=== PATIENT | female | born 1990 | race Caucasian/White ===

== ENCOUNTER 2018-09-21 05:47 | Inpatient (IN) | payer BC ==
[2018-09-21] MEDS ORDERED: Sodium Chloride 0.9% 10 ML Syringe FLUSH PRN ×3 (06:10→14:07)
[2018-09-21] MEDS ORDERED: Penicillin G Potassium 5,000,000 Unit Vial ONE (06:34)
[2018-09-21] MEDS: Lactated Ringers 1,000 ML IV SCH ×3 (06:40→08:50)
[2018-09-21] MEDS ORDERED: Betamethasone Acetate/Betamethasone Sod Phosphate 30 MG/5 ML MDV IM ONE (06:45)
[2018-09-21] MEDS ORDERED: Misoprostol 400 MCG (4 X 100 MCG TAB) RECTAL PRN ×2 (06:46→14:07)
[2018-09-21] MEDS ORDERED: Carboprost Tromethamine 250 MCG/1 ML Amp IM PRN ×2 (06:46→14:07)
[2018-09-21] MEDS ORDERED: Methylergonovine 0.2 MG/1 ML Amp IM PRN (06:46)
[2018-09-21] MEDS ORDERED: Betamethasone Acetate/Betamethasone Sod Phosphate 30 MG/5 ML MDV ONE (06:46)
[2018-09-21] MEDS ORDERED: Tranexamic Acid 1,000 MG in Sodium Chloride 0.9% 100 ML IV PRN ×2 (06:46→14:07)
[2018-09-21] MEDS ORDERED: Acetaminophen 325 MG Tab PO PRN ×2 (06:46→14:07)
[2018-09-21] MEDS ORDERED: Lidocaine 1% 30 ML SDV INJECT PRN (06:46)
[2018-09-21] MEDS ORDERED: Ondansetron 4 MG/2 ML SDV IV PRN (06:46)
[2018-09-21] MEDS ORDERED: Lactated Ringers 500 ML IV ONE (06:46)
[2018-09-21] MEDS ORDERED: Oxytocin/Normal Saline 30 UNIT/500 ML BAG IV SCH (07:00)
[2018-09-21] MEDS ORDERED: Penicillin G Potassium 5 MILLUNITS in Sodium Chloride 0.9% 100 ML IV ONE (07:00)
[2018-09-21] MEDS ORDERED: fentaNYL 100 MCG/2 ML SDV ONE (08:04)
[2018-09-21] MEDS ORDERED: EPINEPHrine 1 MG/ML SDV ONE (08:04)
[2018-09-21] MEDS ORDERED: Sodium Bicarbonate 4.2% 2.5 MEQ/5 ML SDV ONE (08:05)
--- NOTE | 2018-09-21 08:35 | PCM.SN ---
- Free Text/Narrative Note: Intrathecal. Sitting position, sterile prep and drape. 1% lidocaine w bicarb for skinwheal to L2 L3 interspace. Introducer, 24 ga pencan x 1. Pos CSF, neg heme, neg parasthesia. 0.1 ml 1:1000 epi, 20 mcg pf sufenta, 30 mcg pf fentanyl , 0.4 ml pf ns and 6 mg of 0.75% pf bupivacaine injected after CSF aspiration. Pt to L lateral position. Procedure time 0815 to 0827
[2018-09-21] MEDS: Penicillin G Potassium 3 MILLUNITS in Sodium Chloride 0.9% 100 ML IV SCH ×2 (10:14→19:21)
--- NOTE | 2018-09-21 12:31 | PN ---
DATE: 09/21/2018 SUBJECTIVE: The patient is requesting intrathecal, now status post intrathecal and feeling comfortable. OBJECTIVE: heart tones 130s and reassuring tocometer contractions spaced out to every 5-10 minutes on average. Vaginal exam reveals to be 5 cm, 100% effaced, +1 to +2 station, vertex suspected, still leaking clear fluid. ASSESSMENT/PLANS: Intrauterine at 35 and 1/7 weeks by 8 and 2/7 weeks ultrasound with spontaneous rupture membranes with labor and advancing cervical dilation, not felt to be a transfer candidate, that now has had her intrathecal, feels comfortable, and contractions have decreased. Therefore, we will start Pitocin augmentation, start at 2 milliunits, up by 2 milliunits every 30 minutes and followup clinically and closely. Plans were discussed with the patient. Will be doing this, because of the spontaneous rupture membranes approximately 24 hours prior and we will follow maternal status closely as well. [facility] /[id number]
--- NOTE | 2018-09-21 12:34 | PN ---
DATE: 09/21/2018 SUBJECTIVE: The patient is comfortable, status post intrathecal. OBJECTIVE: heart tones 120s to 130s. Vaginal exam thought to be complete earlier, did evaluate her at 6 cm with 100% effaced, +1 to +2 station, vertex suspected with clear fluid continued to leak from the vaginal region. Tocometer reveals contractions every 2 minutes on average. Pitocin continues. ASSESSMENT: Intrauterine 35 and 1/7th weeks by 8 and 2/7th week ultrasound with spontaneous rupture of membranes, active labor, advancing cervical dilation, not a transfer candidate, GBS unknown, G1, P0. PLAN: At this time, we will continue to followup clinically and closely. Follow status closely. Plans were discussed with patient. [facility] /[id number]
--- NOTE | 2018-09-21 12:53 | HP ---
CHIEF COMPLAINT: Leakage of fluid and increasing contractions at 35w1d gestation. HISTORY OF PRESENT ILLNESS: The patient is a 27-year-old, G1, P0 female, who presented at 35 weeks 1 day's gestation with leakage of fluid and contractions increasing in intensity and frequency. The patient states that since 09/20/2018, the patient began noticing a slight leakage of fluids throughout the day. Then, at 3 a.m. on 09/21/2018, the patient awoke due to a large amount of fluid leakage and onset of abdominal cramping. The patient then presented to Labor and Delivery and was noted to be timoteo about every 2 to 4 minutes. The patient was checked and noted to be in active labor. The patient endorses positive movement. The patient denies associated symptoms of headache, fever, chills, blurred vision, chest pain, shortness of breath, or lower extremity edema. Patient has had SROM for over 24 hours. Upon admission a speculum exam was done with visualization of head, Nitrazine positive fluid, and 4cm dilation 80% effaced [employer]BL[employer] in [place], [place] was consulted and it was decided that patient was not fit for transfer and preparation for delivery here. [place] [facility]ICU team was contacted and it was decided that they will arrive after delivery due to infant prematurity. PAST MEDICAL HISTORY: The patient has a history of musculoskeletal conditions. CURRENT MEDICATIONS: vitamin. ALLERGIES: Intolerance to hydrocodone. FAMILY HISTORY: The patient states that diabetes runs on paternal side of the family. The patient's father also an essential tremor, for which he takes a beta-sony. SOCIAL HISTORY: The patient resides in [place] with significant other, Jerson, and stepdaughter, Edie. 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 They have 1 cat in the home and they do not smoke. Significant other, Rudy, has a significant history for a maternal grandfather with diabetes and Rudy himself has exercise-induced asthma. REVIEW OF SYSTEMS: Pertinent review of systems noted in HPI. OBJECTIVE: Vital Signs: Temp 97.9, HR 102 bpm, BP 132/87, RR 16 breaths per minute. General: Awake, alert, in mild distress due to contractions. HEENT: Grossly normal. Cardiovascular: Regular rate and rhythm. No murmurs noted. Pulmonary: Lungs are clear to auscultation bilaterally. Abdomen: Soft, nontender. Normoactive bowel sounds. Gravid uterus palpated 15 cm above the umbilicus. Cervical: Upon spec exam, the patient was noted be 5 cm dilated with presentation of fetus in vertex presentation. Clear fluid noted. Extremities: No edema, erythema, or tenderness to palpation bilaterally. Neurologic: Grossly normal. ASSESSMENT: The patient is 27-year-old, G1, P0, presenting at 35 weeks 1 day's gestation with leakage of fluid and contractions, noted to be in active labor. 1. IUP 35 1/7 gestation by 8 2/7 weeks U/S 2. SROM over 24 hours 3. Presentation in active labor 4. NOT a transfer candidate 5. GBS unknown 6. PLAN: 1. The patient was given 1 dose of penicillin due to unknown GBS status. 2. The patient was noted to be in breech presentation at 21 weeks with an anterior placenta. Patient is now vertex. 3. Continuation of expected labor and delivery. The patient was seen and evaluated today by myself and Dr. Caleb Chacko. Assessment plan is under advisement of Dr. Chacko. seen and agreed-NICK -Madhuri Fowler MS-III [facility] /[id number] MTDD
[2018-09-21] MEDS ORDERED: Benzocaine/Menthol 20%-0.5% Spray 56 GM Canister TOP PRN (14:00)
[2018-09-21] MEDS ORDERED: Simethicone 80 MG Tab.Chew PO PRN (14:00)
[2018-09-21] MEDS ORDERED: Oxytocin 10 Units/1 ML SDV IM PRN (14:07)
[2018-09-21] MEDS ORDERED: Docusate Sodium 100 MG Cap PO PRN (14:07)
[2018-09-21] MEDS: Ibuprofen 800 MG Tab PO PRN (17:27)
[2018-09-21] MEDS ORDERED: Zolpidem 5 MG Tab PO PRN (21:00)
[2018-09-22] MEDS: Ibuprofen 800 MG Tab PO PRN ×2 (02:36→10:55)
[2018-09-22] MEDS ORDERED: Prenatal Multivitamin with Calcium/Folic Acid/Iron Tab PO SCH (09:00)
--- NOTE | 2018-09-22 09:02 | PN ---
DATE: 09/22/2018 SUBJECTIVE: The patient is status post day #1 from spontaneous vaginal delivery of male infant at 35 weeks 1 day gestation. The patient was noted to have spontaneous rupture of membranes for over 30 hours and to be in active labor when presented to Labor and Delivery at that time. The patient reports feeling well overnight. She endorses normal amount of bleeding and cramping. She has been ambulating well, tolerating general diet, urinating, and passing flatus appropriately. She just reports being sore throughout. She denies symptoms of dizziness, lightheadedness, headaches, difficulty breathing, or chest pain. The patient is eager to be discharged for travel to [place] to be with , who has been admitted to the NICU in [place], [place] due to prematurity and concern of possible sepsis. OBJECTIVE: Vital Signs: Temp 98.7, HR 68 bpm, BP 94/63, RR 16 breaths per minute, O2 saturation 99% on room air. General: Awake, alert, lying in bed, in no acute distress. HEENT: Grossly normal. Pulmonary: Lungs are clear to auscultation bilaterally. No increased work of breathing noted. Cardiovascular: Regular rate and rhythm. No murmurs noted. Abdomen: Soft, nontender, nondistended, normoactive bowel sounds. Uterine fundus palpated 3 cm below umbilicus. Firm. Extremities: No edema or erythema noted in lower extremities bilaterally. No tenderness to palpation of calves bilaterally. Neurologic: Grossly normal. RECENT LAB RESULTS: Hematology: WBC 16.9, RBC 3.46, hemoglobin 11.0, hematocrit 32.3, platelet count 268. ASSESSMENT: 1. The patient is status post day #1 spontaneous vaginal delivery at 35 weeks 1 day gestation by 8 weeks 2 days gestation ultrasound. 2. Spontaneous rupture of membranes over 24 hours, noted to be about 30 hours prior to delivery. 3. Presentation to Labor and Delivery in active labor. 4. The patient was not a transfer candidate at that time. 5. GBS status is unknown. 6. The patient is 1, now para 1. PLAN: 1. Continue routine cares. 2. Continue to monitor clinically and closely. 3. Consider discharge today if deemed appropriate. seen and agreed- DCW. The patient was seen and evaluated today by myself and Dr. Caleb Chacko. Assessment and plan is under advisement of Dr. Chacko. [facility] /[id number] HUNG
--- NOTE | 2018-09-22 09:47 | DEL ---
DATE: 09/21/2018 PREOPERATIVE DIAGNOSES: 1. Intrauterine at 35 and 1/7th weeks by 8 and 2/7th weeks ultrasound. 2. Spontaneous rupture of membranes at 6 a.m. date prior to admission with delivery at approximately 12:19 p.m. the next day with worsening leaking at 3 a.m. on the date of admission. 3. Not a transfer candidate. 4. Active labor. 5. Advanced cervical dilation. 6. Group B Streptococcus unknown. 7. G1, P0. POSTOPERATIVE DIAGNOSES: 1. Intrauterine at 35 and 1/7th weeks by 8 and 2/7th weeks ultrasound - delivered. 2. Spontaneous rupture of membranes at 6 a.m. date prior to admission with delivery at approximately 12:19 p.m. the next day with worsening leaking at 3 a.m. on the date of admission. 3. Not a transfer candidate. 4. Active labor. 5. Advanced cervical dilation. 6. Group B Streptococcus unknown. 7. G1, P0. 8. Right occiput anterior presentation. 9. Nuchal cord x1, reduced bluntly with delivery. 10.Left vaginal sidewall laceration - repaired. PROCEDURE PERFORMED: NST, Pitocin augmentation and spontaneous vaginal delivery with left vaginal sidewall laceration - repaired. TOPOLOGY PROFESSOR: Clothing Busheler: Madhuri Fowler MS-III. ANESTHESIA/ANALGESIA: Intrathecal. ESTIMATED BLOOD LOSS: 400 mL. FINDINGS: Male, scores of 8 and 9, weighing 6 pounds 5 ounce (2855 g). SUMMARY OF EVENTS: The patient is a 27-year-old, G1, P0, intrauterine at 35 and 1/7th week by 8 and 2/7th weeks ultrasound who presents with vaginal leaking. Approximately 24 hours prior to her initial evaluation at 6 a.m. on date of admission, she described leaking 24 hours prior that worsened at approximately 3 a.m. on the date of admission. She was subsequently evaluated, had grossly rupture of membranes with some bloody show and was noted to be 4-5 cm with vertex suspected and around 4+ cm. She was felt not to be a transfer candidate due to station of 0 to +2 station as well as ripening cervix as she may be at risk of delivering en route. This was discussed with Dr. Blake, and phone consult was made in regard to this. After it was determined that she was not a transfer candidate, phone consult was made with Dr. Bhatti, who recommended delivery as the infant, following closely thereafter, and calling their team once the baby was delivered for further evaluation and management and potential for transfer with anticipation of transfer noted. The patient was followed closely thereafter. Her contractions did seem to space out after intrathecal. She received Pitocin augmentation and continued into labor thereafter. She was found to be complete. I was called to the room, and Madhuri Fowler and myself donned sterile gown and gloves. The patient started pushing with contractions. vertex was then delivered in a POLLO presentation. Nuchal cord x1 noted and reduced bluntly with delivery as well as anterior and posterior shoulder and the rest of the delivered. Mouth and nares were suctioned. Cord was doubly clamped and cut. was resuscitated on mother's abdomen. Then, approximately 10 mL of cord blood was obtained for labs. Placenta was then delivered with gentle cord traction and fundal massage within 5 minutes. Perineum, vagina, and perirectal areas were then examined and noted to have a left vaginal sidewall laceration that was tested and good anesthesia was noted and was repaired in usual fashion using 3-0 Vicryl. Perineum, vagina and perirectal areas were then examined without any other tears or lacerations. Rectal exam was done without any evidence of lacerations as well. Mother is currently stable time at the time of dictation. is being worked up currently and NICU consult has been made and NICU is presenting for transfer of this infant. [facility] /[id number]
--- NOTE | 2018-09-22 10:05 | OBOUT ---
DATE: 09/21/2018 DATE AND TIME OF NST: Date: 09/21/2018. Time: 7:10 to 7:30. REASON FOR NST: 1. Intrauterine at 35 and 1/7th weeks by 8 and 2/7th weeks' ultrasound. 2. Spontaneous rupture of membranes approximately 24 hours prior to evaluation at 6:00 a.m. on 09/20/2018, worsening since 3:00 a.m. 3. Active labor. 4. Advancing cervical dilation. 5. Not a transfer candidate. 6. Group B Streptococcus unknown. 7. G1, P0. NST INTERPRETATION: During this time period, heart tone baseline is approximately 130 to 135 and there are at least two 15 x 15 beats per minute accelerations, making this strip reactive. It is also noted to be reassuring. Tocometer reveals potential 4 to 5 contractions felt by patient during this time period. ASSESSMENT/PLAN: 1. Nonstress test - reactive, reassuring. 2. Tocometer with contractions. PLAN: Initial vitals; blood pressure 141/87, heart rate 69, temperature 97.9. Recheck blood pressure is 132/87. PIH panel was drawn. Evaluation was done with a sterile speculum exam revealing vertex seen with the speculum, positive pooling, positive nitrazine, and grossly rupture of membranes with vaginal exam thereafter revealing her to be 4 cm, 100% effaced, 0 to +1 to +2 station. Subsequently, Dr. Blake, OB-TRACK OILER, in [place], was consulted over the phone in regard to this patient and due to the potential that the patient may deliver in the near future, she was felt that she was not a transfer candidate. This was subsequently discussed with the patient, she understood and agreed. She will be admitted to the hospital. In addition, I did discuss this case with Dr. Bhatti, otr company driver in [place], and at this point in time, the plan is to deliver here, call him as soon as baby is delivered to be prepared with CPAP, possible IV, and follow clinically and closely thereafter, and most likely his team will come after delivery. I did discuss with the patient, and she understands and agrees as well. Admit history and physical done in conjunction with FELICE Paniagua, seen and agreed. For this, records were called for, reviewed and summarized as well as supplemented by the patient's history, and review of systems were otherwise reviewed and felt to be noncontributory other than noted in her notes. Plan at the current time is to admit her to the hospital. Penicillin has been started due to GBS unknown status and being less than 37 weeks, as well as betamethasone 12 mg IM x1 shot was given. She was checked during this NST and had change within about less than an hour from 4 cm to 5 cm and was found to be 90% to 100% effaced with a +1 to +2 station. I did discuss with the patient the plan as well as risk associated with prematurity, and she felt that she was not a transfer candidate as well, and we will continue to follow clinically and closely at this point in time. [facility] /[id number]
[2018-09-22] MEDS ORDERED: fentaNYL 100 MCG/2 ML SDV ITHECAL ONE (10:48)
[2018-09-22] MEDS ORDERED: Sodium Bicarbonate 4.2% 2.5 MEQ/5 ML SDV IV ONE (10:48)
[2018-09-22] MEDS ORDERED: EPINEPHrine 1 MG/ML SDV IV ONE (10:48)
--- NOTE | 2018-09-25 10:14 | DISCH ---
ADMITTING DIAGNOSES: 1. Intrauterine at 35 and 1/7th weeks by 8 and 2/7th weeks ultrasound. 2. Spontaneous rupture of membranes approximately 24 hours prior to evaluation at 6:00 a.m. on 09/20/2018 with worsening leaking of fluid at 3:00 a.m. on the date of admission. 3. Not a transfer candidate. 4. Active labor. 5. Advancing cervical dilation. 6. Group B Streptococcus unknown. 7. G1, P0. DISCHARGE DIAGNOSES: 1. Intrauterine at 35 and 1/7th weeks by 8 and 2/7th weeks ultrasound - delivered. 2. Spontaneous rupture of membranes approximately 24 hours prior to evaluation at 6:00 a.m. on 09/20/2018 with worsening leaking of fluid at 3:00 a.m. on the date of admission. 3. Not a transfer candidate. 4. Active labor. 5. Advanced cervical dilation. 6. Group B Streptococcus unknown. 7. G1, P0. 8. Right occiput anterior presentation. 9. Nuchal cord times 1 reduced bluntly at delivery. 10.Left vaginal sidewall laceration - repaired. PROCEDURES PERFORMED: NST, Pitocin augmentation, spontaneous vaginal delivery with left vaginal sidewall laceration repaired on date of admission per Dr. Chacko. HISTORY OF PRESENT ILLNESS: Please see H and P. SUMMARY OF HOSPITAL COURSE: The patient was admitted on the above date with the above diagnoses. Due to her advancing cervical dilation, active labor, and prolonged rupture of membranes, case was discussed with Dr. Blake, DATABASE MODELER, on- call in [place], and shared decision was made and it was determined that the patient was not felt to be a transfer candidate due to the potential risk of delivering en route. This was discussed with the patient. She understood and agreed as well. She was subsequently followed closely thereafter. Please see delivery note. She did have some Pitocin augmentation after intrathecal, then went on to have spontaneous vaginal delivery yielding a male with scores 8 and 9, weighing 6 pounds 5 ounces (2855 g) and due to prematurity, was sent to [facility] after they arrived after initial cares here at [facility]. day #1, date of discharge, the patient was tolerating p.o., ambulating, urinating, passing flatus, and requesting discharge. Please see progress notes in regard to this. Discharge evaluation done in conjunction with Madhuri Fowler MS-III. CONDITION ON DISCHARGE COMPARED TO CONDITION ON ADMISSION: Improved. DISCHARGE INSTRUCTIONS: 1. Diet as tolerated. 2. Activity: No lifting more than 20 pounds. No sit-ups, straining, and pelvic rest for the next 6 weeks with immediate return to fertility discussed with the patient. 3. Reasons to return or go to the emergency room were discussed with the patient in detail including, but not limited to, temperature greater than 100.4, foul-smelling discharge, red hot tender breasts, or increased vaginal bleeding. DISCHARGE MEDICATIONS: [id number] Tylenol and ibuprofen for pain, vitamins x6 weeks, and breast pump. FOLLOWUP: Follow up in 6 weeks for . I did discuss followup of her infant per NICU recommendations most likely will be shortly after NICU discharge and we can certainly follow her up in the clinic here in [place]. The patient understands and agrees with the above treatment plan. [facility] /[id number] HUNG
== END 2018-09-22 11:10 | disposition home or self-care (01) | DRG 560 ==
LOC: DL.OBCHECK 05:47 → DL.OB 06:46 → UNDOADMIN 06:46 → DL.OB 12:19
PROVIDERS: ADMIT Family Medicine; ATTEND Family Medicine
PROC: 10E0XZZ Delivery of Products of Conception, External Approach (ICD-10-PCS; principal; 2018-09-21)
PROC: 4A1HXCZ Monitoring of Products of Conception, Cardiac Rate, External Approach (ICD-10-PCS; 2018-09-21)
PROC: 3E0R3BZ Introduction of Anesthetic Agent into Spinal Canal, Percutaneous Approach (ICD-10-PCS; 2018-09-21)
PROC: 00HU33Z Insertion of Infusion Device into Spinal Canal, Percutaneous Approach (ICD-10-PCS; 2018-09-21)
PROC: 0KQM0ZZ Repair Perineum Muscle, Open Approach (ICD-10-PCS; 2018-09-21)
DX: O60.14X0 Preterm labor third trimester with preterm delivery third trimester, not applicable or unspecified (principal); O69.81X0 Labor and delivery complicated by cord around neck, without compression, not applicable or unspecified; O70.1 Second degree perineal laceration during delivery; Z3A.35 35 weeks gestation of pregnancy; Z37.0 Single live birth
CPT/HCPCS: 36415; 59409; 81003; 82565; 82570; 83615; 83986; 84156; 84450; 84460; 84520; 84550; 85027; 87081; A9270-GY; J0171; J2405; J2540; J2590; J3010; J7050; J7120

== ENCOUNTER 2019-12-29 22:54 | Emergency (ER) | payer BC ==
--- NOTE | 2019-12-30 00:17 | EDM.PDOC ---
ED HPI GENERAL MEDICAL PROBLEM - General Chief Complaint: Neck Problem Stated Complaint: HEAD AND NECK PAIN Time Seen by Provider: 12/30/19 00:05 Source of Information: Reports: Patient, RN History Limitations: Reports: No Limitations - History of Present Illness INITIAL COMMENTS - FREE TEXT/NARRATIVE: ED with c/o spasm to neck and tingling in face during sex. Feeling better now but emilie thought she needed to be checked out. No weakness. No headache no blurred vision. Some tightness in neck area but states has been working out more recently. No fever or chill. No urinary c/o. remote hx of anxiety denies panic attacks. 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: Psychiatric History: Reports: Anxiety, Depression - Past Surgical History HEENT Surgical History: Reports: Adenoidectomy, Oral Surgery, Tonsillectomy Musculoskeletal Surgical History: Reports: Arthroscopic Knee Social & Family History - Family History Family Medical History: Noncontributory - Tobacco Use Smoking Status *Q: Unknown Ever Smoked - Caffeine Use Caffeine Use: Reports: None - Alcohol Use Days Per Week of Alcohol Use: 3 Number of Drinks Per Day: 2 Total Drinks Per Week: 6 - Recreational Drug Use Recreational Drug Use: No ED ROS GENERAL - Review of Systems Review Of Systems: Comprehensive ROS is negative, except as noted in HPI. ED EXAM, GENERAL - Physical Exam Exam: See Below Exam Limited By: No Limitations General Appearance: Alert, No Apparent Distress Eye Exam: Bilateral Eye: EOMI, PERRL Ears: Normal External Exam, Normal TMs Nose: Normal Inspection Throat/Mouth: Normal Inspection, Normal Lips, Normal Voice Head: Atraumatic, Normocephalic Neck: Normal Inspection, Tender Lateral Respiratory/Chest: No Respiratory Distress, Lungs Clear Cardiovascular: Normal Peripheral Pulses, Regular Rate, Rhythm GI/Abdominal: Normal Bowel Sounds Back Exam: Full Range of Motion Extremities: Normal Inspection, Normal Range of Motion Neurological: Alert, Oriented, Normal Cognition Psychiatric: Normal Affect, Normal Mood Skin Exam: Warm, Dry, Intact, Normal Color Course - Vital Signs Last Recorded V/S: Last Vital Signs Temp 97.8 F 12/29/19 23:38 Pulse 69 12/29/19 23:38 Resp 18 12/29/19 23:38 BP 128/87 12/29/19 23:38 Pulse Ox 100 12/29/19 23:38 Departure - Departure Time of Disposition: 00:15 Disposition: Home, Self-Care 01 Condition: Good Clinical Impression: Muscle spasm - Discharge Information *PRESCRIPTION DRUG MONITORING PROGRAM REVIEWED*: No *COPY OF PRESCRIPTION DRUG MONITORING REPORT IN PATIENT OBDULIA: No Instructions: Muscle Cramps and Spasms, [id number] Referrals: PCP,Unobtain [Primary Care Provider] - Forms: ED Department Discharge Additional Instructions: rest increase fluids warm pack to tense muscles as needed follow up as needed Sepsis Event Note (ED) - Evaluation Sepsis Screening Result: No Definite Risk - Focused Exam Vital Signs: Vital Signs Temp Pulse Resp BP Pulse Ox 12/29/19 23:38 97.8 F 69 18 128/87 100
== END 2019-12-30 00:19 | disposition home or self-care (01) ==
LOC: DL.ED 22:54
DX: M62.838 Other muscle spasm (principal); Z88.5 Allergy status to narcotic agent
CPT/HCPCS: 99282; 99283

== ENCOUNTER 2021-10-14 09:27 | Emergency (ER) | payer BC, OTHER ==
[2021-10-14 10:06] LABS: ANION GAP 14.9 mEq/L (7-13); CHLORIDE,CL 106 mmol/L (98-107); SODIUM,NA 143 mmol/L (136-145)
[2021-10-14] MEDS ORDERED: Ketorolac 30 MG/ML SDV IVPUSH ONE (11:26)
== END 2021-10-14 11:44 | disposition home or self-care (01) ==
LOC: DL.ED 09:27
DX: S39.011A Strain of muscle, fascia and tendon of abdomen, initial encounter (principal); K59.00 Constipation, unspecified; Z79.899 Other long term (current) drug therapy; Z88.5 Allergy status to narcotic agent; X58.XXXA Exposure to other specified factors, initial encounter
CPT/HCPCS: 36415; 74176; 80053; 81001; 81025; 85025; 96374; 99284; J1885